=== PATIENT | male | born 1965 | race Caucasian/White ===

== ENCOUNTER 2018-04-09 22:06 | Emergency (ER) | payer OTHER ==
[~2018-04-09] VITALS: Ht 172.7 cm; Wt 117.9 kg
[~2018-04-09 22:06] MED LIST: ABILIFY2 MG PO; KETO10TA2 PO; MICARDIS20 MG; NABUMETONE500 MG PO; NORVASC2.5 MG; PERCOCET 5/3251 TAB PO; [UNRECOGNIZED DRUG - OTHER]
== END 2018-04-09 23:58 | disposition home or self-care (01) ==
LOC: ER 22:06
DX: S40.012A Contusion of left shoulder, initial encounter (principal); W19.XXXA Unspecified fall, initial encounter; Y93.89 Activity, other specified; Y92.098 Other place in other non-institutional residence as the place of occurrence of the external cause; Y99.8 Other external cause status

== ENCOUNTER 2018-05-28 17:59 | Emergency (ER) | payer OTHER ==
[~2018-05-28] VITALS: Ht 170.2 cm; Wt 120.2 kg
[2018-05-29] MEDS ORDERED: PEPCID40 MG PO (03:30)
[2018-05-29] MEDS ORDERED: CEFUROXIME500 MG PO ×2 (03:30)
[2018-05-29] MEDS ORDERED: LEVSIN/SL0.125 MG SL (03:30)
== END 2018-05-29 03:49 | disposition home or self-care (01) ==
LOC: ER 17:59
DX: R10.11 Right upper quadrant pain (principal)

== ENCOUNTER 2019-04-23 20:55 | Emergency (ER) | payer OTHER ==
[~2019-04-23] VITALS: Ht 172.7 cm; Wt 120.2 kg
[~2019-04-23 20:55] MED LIST changes: +CEFUROXIME500 MG PO; +LEVSIN/SL0.125 MG SL; +PEPCID40 MG PO
[2019-04-23] MEDS ORDERED: PAXIL40 MG (21:20)
[2019-04-23] MEDS ORDERED: FORTAMET1000 MG (21:20)
== END 2019-04-23 22:57 | disposition home or self-care (01) ==
LOC: ER 20:55
DX: M75.52 Bursitis of left shoulder (principal)